=== PATIENT | male | born 1935 | race Caucasian/White ===

== ENCOUNTER 2018-08-09 19:56 | Emergency (ER) | payer OTHER, MEDICARE ==
[~2018-08-09] VITALS: Ht 175.3 cm; Wt 79.8 kg
[2018-08-09 21:19] LABS: BASOPHILS ABSOLUTE AUTO 0.02 K/mm3 (0.00-0.23); BASOPHILS PERCENT AUTO 0 % (0-2); EOSINOPHILS ABSOLUTE AUTO 0.06 K/mm3 (0.00-0.68); EOSINOPHILS PERCENT AUTO 1 % (0-6); Hematocrit 38.4 % (37.0-53.0); Hemoglobin 12.8 g/dL (13.5-17.5); IMMATURE GRAN ABSOLUTE AUTO 0.02 K/mm3 (0.00-0.10); IMMATURE GRAN PERCENT AUTO 0 % (0-1); LYMPHOCYTES ABSOLUTE AUTO 1.21 K/mm3 (0.84-5.20); LYMPHOCYTES PERCENT AUTO 15 % (21-46); MONOCYTES PERCENT AUTO 10 % (4-13); Mean Corpuscular HGB 33.6 pg (26.0-34.0); Mean Corpuscular HGB Conc 33.3 g/dL (31.5-36.5); Mean Corpuscular Volume 101 fL (80-100); Mean Platelet Volume 9.9 fL (9.1-12.4); NEUTROPHILS ABSOLUTE AUTO 5.99 K/mm3 (1.96-9.15); NEUTROPHILS PERCENT AUTO 74 % (41-73); Platelet Count 133 K/mm3 (150-400); RDW Standard Deviation 48.5 fL (35.1-46.3); Red Blood Cell Count 3.81 M/mm3 (4.30-5.90)
[2018-08-09 21:42] LABS: Alanine Aminotransfer (ALT/SGP 13 U/L (12-78); Albumin, Blood 3.3 g/dL (3.4-5.0); Albumin/Globulin Ratio 1.1 (0.8-1.8); Alk Phos 65 U/L (50-136); Anion Gap 10 mmol/L (6-16); Aspartate Aminotrans (AST/SGOT 15 U/L (12-37); Bilirubin, Total 0.6 mg/dL (0.1-1.0); Blood Urea Nitrogen 17 mg/dL (8-24); Bun/Creatinine Ratio 14.7 (12.0-20.0); CO2, Blood 25 mmol/L (21-32); Calcium, Blood 8.5 mg/dL (8.5-10.1); Chloride, Blood 109 mmol/L (98-108); Creatinine, Blood 1.16 mg/dL (0.60-1.20); Globulin, Blood 3.1 g/dL (2.2-4.0); Glomerular Filtration Rate >60 (60-); Glucose, Blood 117 mg/dL (70-99); Potassium, Blood 3.6 mmol/L (3.5-5.5); Sodium, Blood 144 mmol/L (136-145); Total Protein, Blood 6.4 g/dL (6.4-8.2); Troponin I <0.015 ng/mL (0.000-0.040)
[2018-08-09] MEDS ORDERED: AMLO5 PO (22:58)
[2018-08-09] MEDS ORDERED: DOCU100 PO (22:59)
[2018-08-09] MEDS ORDERED: Motion Sickness25 M1 PO (22:59)
[2018-08-09] MEDS ORDERED: Terazosin HCl10 MG PO (23:00)
[2018-08-09] MEDS ORDERED: BUPR100 PO (23:00)
[2018-08-09] MEDS ORDERED: Omeprazole20 M1 PO (23:01)
[2018-08-09] MEDS ORDERED: CHLO25B PO (23:01)
[2018-08-09] MEDS ORDERED: PEG3350510 GM (23:01)
[2018-08-09] MEDS ORDERED: Inderal40 MG PO (23:02)
[2018-08-09] MEDS ORDERED: SENN187 PO (23:02)
[2018-08-09] MEDS ORDERED: Lamisil At6 GM (23:02)
[2018-08-09] MEDS ORDERED: Norco 5-325 Ta1 EACH PO (23:45)
[2018-08-09] MEDS ORDERED: LEVO750 PO (23:45)
== END 2018-08-09 23:55 | disposition home or self-care (01) ==
LOC: ER 19:56
PROVIDERS: Emergency Medicine
DX: J18.9 Pneumonia, unspecified organism (principal); I12.9 Hypertensive chronic kidney disease with stage 1 through stage 4 chronic kidney disease, or unspecified chronic kidney disease; N18.9 Chronic kidney disease, unspecified; G47.30 Sleep apnea, unspecified; E78.5 Hyperlipidemia, unspecified; M19.90 Unspecified osteoarthritis, unspecified site; Z88.8 Allergy status to other drugs, medicaments and biological substances; Z79.899 Other long term (current) drug therapy; Z86.718 Personal history of other venous thrombosis and embolism; Z79.02 Long term (current) use of antithrombotics/antiplatelets; Z87.891 Personal history of nicotine dependence
CPT/HCPCS: 71260; 80053; 83880; 84484; 85025; 93005; 93010; 99285-25; Q9967

== ENCOUNTER 2019-01-19 19:45 | Inpatient (IN) | payer OTHER, MEDICARE ==
[~2019-01-19] VITALS: Ht 167.6 cm; Wt 79.2 kg
[~2019-01-19 19:45] MED LIST: AMLO5 PO; BUPR100ER PO; CHLO25B PO; DOCU100 PO; Inderal40 MG PO; LEVO750 PO; Lamisil At6 GM; Motion Sickness25 M1 PO; Norco 5-325 Ta1 EACH PO; Omeprazole20 M1 PO; PEG3350510 GM PO; SENN187 PO; Terazosin HCl10 MG PO
[2019-01-19] MEDS ORDERED: ELIQUIS5 MG PO (21:20)
[2019-01-19] MEDS ORDERED: Aspirin EC81 MG PO (21:21)
[2019-01-19] MEDS ORDERED: SIMV10 PO (21:28)
[2019-01-19 22:53] LABS: Hematocrit 37.5 % (37.0-53.0); Hemoglobin 12.3 g/dL (13.5-17.5); Mean Corpuscular HGB 32.5 pg (26.0-34.0); Mean Corpuscular HGB Conc 32.8 g/dL (31.5-36.5); Mean Corpuscular Volume 99 fL (80-100); Platelet Count 119 K/mm3 (150-400); RDW Coefficient Variation 13.2 % (11.7-14.2); Red Blood Cell Count 3.78 M/mm3 (4.30-5.90); White Blood Cell Count 9.18 K/mm3 (4.00-11.30)
[2019-01-19 23:07] LABS: International Normalized Ratio 1.04
--- NOTE | 2019-01-20 | NUR ---
ADMIT PT ARRIVED TO PCU 2 AT 2345 VIA ER BED. PT IS AWAKE, ALERT, AND ORIENTED. PT STOOD UP TO TRANSFER TO PCU BED WITH SBA. PT DENIES PAIN OR SOB AT THIS TIME. PT COMPLAINS OF SOME DISCOMFORT TO RIB AREA WITH DEEP INSPIRATION. VITAL SIGNS STABLE. PT ON 2L O2 NC. PT WITH ATTENDS IN PLACE. WILL CONTINUE TO MONITOR.
[2019-01-20] MEDS ORDERED: POTCHL20ER PO (00:08)
[2019-01-20] MEDS ORDERED: Vitamin B Comple1 EA PO (00:09)
[2019-01-20] MEDS ORDERED: Vitamin B-121000 MCG PO (00:10)
[2019-01-20] MEDS ORDERED: Calcium Magnes1 EACH PO (00:13)
[2019-01-20 04:07] LABS: Hematocrit 35.3 % (37.0-53.0); Hemoglobin 11.7 g/dL (13.5-17.5); Mean Corpuscular HGB 32.8 pg (26.0-34.0); Mean Corpuscular HGB Conc 33.1 g/dL (31.5-36.5); Mean Corpuscular Volume 99 fL (80-100); Mean Platelet Volume 10.3 fL (9.1-12.4); Platelet Count 122 K/mm3 (150-400); RDW Coefficient Variation 13.1 % (11.7-14.2); RDW Standard Deviation 47.6 fL (35.1-46.3); Red Blood Cell Count 3.57 M/mm3 (4.30-5.90); White Blood Cell Count 8.81 K/mm3 (4.00-11.30)
[2019-01-20 04:33] LABS: Anion Gap 6 mmol/L (6-16); Blood Urea Nitrogen 15 mg/dL (8-24); Bun/Creatinine Ratio 15.5 (12.0-20.0); CO2, Blood 27 mmol/L (21-32); Calcium, Blood 8.3 mg/dL (8.5-10.1); Chloride, Blood 104 mmol/L (98-108); Creatinine, Blood 0.97 mg/dL (0.60-1.20); Glomerular Filtration Rate >60 (60-); Glucose, Blood 105 mg/dL (70-99); Potassium, Blood 3.8 mmol/L (3.5-5.5); Sodium, Blood 137 mmol/L (136-145)
--- NOTE | 2019-01-20 05:39 | NUR ---
SHIFT SUMMARY NO ACUTE CHANGES THIS SHIFT. PT REMAINS ALERT AND ORIENTED. VITAL SIGNS HAVE REMAINED STABLE, PT ON 2L O2 NC. PT DENIES SOB OR PAIN AT REST. NS INFUSING AT 100 ML/HR. PT USED URINAL ONCE TO VOID, ATTENDS REMAIN IN PLACE. PT HAS REPOSITIONED SELF IN BED INDEPENDENTLY. PT TAKING PO FLUIDS WELL. WILL CONTINUE TO MONITOR AND REPORT OFF TO ONCOMING RN.
--- NOTE | 2019-01-20 16:19 | NUR ---
PT FOUND IN ROOM WANDERING AROUND WITHOUT O2 EARLIER THIS AFTERNOON, CONTINUES TO TAKE OFF. PT HAS BEEN ASKING INTERMITTENTLY WHERE HE IS AND WHY HE IS HERE. ASSESS PT ORIENTED TO PERSON, DATE, SURROUNDING AND EVENT. NOTIFIED DR SANTIAGO TO CHANGES, NEW ORDERS FOR ABG. RT NOTIFIED. WILL CONTINUE TO MONITOR.
[2019-01-20 16:33] LABS: PCO2 Arterial 37.1 mmHg (35-45); PO2 Arterial 61.6 mmHg (80-100); pH Blood Arterial 7.41 (7.35-7.45)
--- NOTE | 2019-01-20 16:46 | NUR ---
SHIFT SUMMARY PT A&Ox3; TO PERSON, DATE, EVENT AND SURROUNDING, PT STATES HE DOES NOT THINK WE ARE IN [place]. PT HAS HAD INTERMITTIENT CONFUSE THIS AFTERNOON, NOTIFIED DR SANTIAGO. PT REPOTS RIB/CHEST AND LLE PAIN, MEDICATED PER EMAR. PT ON 2L O2 VIA NC THIS AM, TITRATED TO RA. BREATHING EVEN AND UNLABORED. SOB WITH EXERTION. PT DENIES NAUSEA DURING SHIFT. PT SBA TO BATHROOM. PT SETS OFF BED AND CHAIR ALARM, NOT USING CALL LIGHT. VENOUS DUPLEX COMPLTED DURING SHIFT. VSS. NO OTHER ACUTE CHANGES NOTED. WILL CONTINUE TO MONITOR.
--- NOTE | 2019-01-20 18:04 | NUR ---
NOTIFIED DR SANTIAGO OF ABG RESULTS. NO NEW ORDERS. WILL CONTINUE TO MONITOR.
--- NOTE | 2019-01-20 19:30 | NUR ---
C[facility] of Care: Patient alert and oriented x4, sitting upright in bed. c/o pain to mid-chest upon deep inspiration 01/09. Patient states chest pain has been present since before admission and has slightly improved, denies pain to any other locations. Denies dyspnea/SOB, O2-96-98% on RA, also tolerates ambulation to bathroom without difficulty. VS wnl, heart rhythm per telemetry shows A-flutter, rate 60's. Bed-alarm in place as patient is not using call light for assistance, and getting out of bed to go to bathroom. Peripheral IV x1 to rt AC patent and intact. Will continue to monitor for pain, safety, comfort.
--- NOTE | 2019-01-21 00:24 | NUR ---
Confusion/Restlessness: Patient becoming increasingly confused/restless since start of shift. Increasing frequency to almost constantly climbing out of bed without assistance. Patient attempting to leave his room, wanting to check other rooms for belongings, , or attempting to find his room. Increasing confusion, not remembering where he is or time/date. Remains calm with staff but becoming more difficulty to re-direct. Contacted Dr. Marroquin and received orders for mackenzie vest restraint and for prn Haldol 2-3mg IV q6 prn agitation. Patient now in mackenzie vest, tolerating without difficulty. Will give prn Haldol.
[2019-01-21 03:43] LABS: BASOPHILS ABSOLUTE AUTO 0.01 K/mm3 (0.00-0.23); BASOPHILS PERCENT AUTO 0 % (0-2); EOSINOPHILS ABSOLUTE AUTO 0.12 K/mm3 (0.00-0.68); EOSINOPHILS PERCENT AUTO 1 % (0-6); Hematocrit 34.9 % (37.0-53.0); Hemoglobin 11.8 g/dL (13.5-17.5); IMMATURE GRAN ABSOLUTE AUTO 0.04 K/mm3 (0.00-0.10); IMMATURE GRAN PERCENT AUTO 1 % (0-1); LYMPHOCYTES ABSOLUTE AUTO 1.26 K/mm3 (0.84-5.20); LYMPHOCYTES PERCENT AUTO 15 % (21-46); MONOCYTES ABSOLUTE AUTO 0.89 K/mm3 (0.16-1.47); MONOCYTES PERCENT AUTO 11 % (4-13); Mean Corpuscular HGB 32.8 pg (26.0-34.0); Mean Corpuscular HGB Conc 33.8 g/dL (31.5-36.5); Mean Corpuscular Volume 97 fL (80-100); NEUTROPHILS ABSOLUTE AUTO 6.19 K/mm3 (1.96-9.15); NEUTROPHILS PERCENT AUTO 73 % (41-73); Platelet Count 147 K/mm3 (150-400); RDW Coefficient Variation 13.1 % (11.7-14.2); RDW Standard Deviation 46.6 fL (35.1-46.3); White Blood Cell Count 8.51 K/mm3 (4.00-11.30)
[2019-01-21 04:05] LABS: Alanine Aminotransfer (ALT/SGP 10 U/L (12-78); Albumin, Blood 2.8 g/dL (3.4-5.0); Albumin/Globulin Ratio 0.8 (0.8-1.8); Alk Phos 78 U/L (50-136); Anion Gap 7 mmol/L (6-16); Aspartate Aminotrans (AST/SGOT 14 U/L (12-37); Bilirubin, Total 0.8 mg/dL (0.1-1.0); Blood Urea Nitrogen 15 mg/dL (8-24); Bun/Creatinine Ratio 14.6 (12.0-20.0); CO2, Blood 25 mmol/L (21-32); Calcium, Blood 8.5 mg/dL (8.5-10.1); Chloride, Blood 107 mmol/L (98-108); Creatinine, Blood 1.03 mg/dL (0.60-1.20); Globulin, Blood 3.3 g/dL (2.2-4.0); Glomerular Filtration Rate >60 (60-); Glucose, Blood 110 mg/dL (70-99); Potassium, Blood 3.7 mmol/L (3.5-5.5); Sodium, Blood 139 mmol/L (136-145); Total Protein, Blood 6.1 g/dL (6.4-8.2)
--- NOTE | 2019-01-21 05:57 | NUR ---
Shift Summary: Patient's confusion/restlessness improving since giving prn Haldol at approx 0030hr. Patient able to sleep for approx 4hr in total. Still attempts to get out of bed and mackenzie vest, but made less attempts and became easier to re-direct. Dukes vest and bed-alarm remain in place at this time. Voiding using urinal without difficulty. Continues to deny pain, discomfort, SOB, or dyspnea. VSS, O2-92-96% on RA. Call light in reach, but patient has not been using for assistance. Will continue to monitor for until report to day shift RN.
--- NOTE | 2019-01-21 08:40 | NUR ---
ASSUMED CARE OF PATIENT AT 0700. PT RESTING IN BED, APPEARS TO BE SLEEPING. PT APPEARS DISORIENTED WHEN HE WAKES UP, ALERT AND ORIENTED TO PERSON, DATE/TIME AND EVENT. PT STATES HE IS AT STILL AT THE HOSPITAL BUT UNSURE OF WHICH ONE OR WHAT CITY IT WAS IN. REPORTS RIB PAIN WITH DEEP INHALATION, WILL CONTINUE TO MONITOR. PT DENIES SOB WITH EXERTION, >94% ON RA, LS DIM T/O, BREAHITNG EVEN AND UNLABORED. VSS. WILL CONTINUE TO MONITOR.
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
[2019-01-21 09:32] LABS: Thyroid Stimulating Hormone 5.1 uIU/mL (0.360-4.800)
--- NOTE | 2019-01-21 17:00 | NUR ---
SHIFT SUMMARY PT A&Ox3, WITH INTERMITTENT CONFUSION AND FORGETFULNESS. PT SBA IN ROOM. PT REPORTS PAIN THIS AM, STATES THIS AFTERNOON THE IS HAS RESOLVE. SPO2 >94% ON RA, DENIES SOB, BREATHING EVEN AND UNLABORED, LS DIM T/O. PT DENIES NAUSEA/EMESIS. HEAD CT COMPLETED DURING SHIFT. VSS. NO OTHER ACUTE CHANGES NOTED DURING SHIFT. WILL CONTINUE TO MONITOR UNTIL REPORT GIVEN TO ONCOMING RN.
--- NOTE | 2019-01-21 19:30 | NUR ---
ASSUMED CARE PT RESTING IN ROOM IN CHAIR AT BEDSIDE COMFORTABLY AT THIS TIME. REPORT FROM DAY SHIFT THAT PT HAS BEEN CONFUSED ON AND OFF T/O DAY. PT IS EASILY DIRECTABLE, BUT CANNOT REMEMBER TO USE CALL LIGHT BEFORE GETTING UP. PT HAS CHAIR ALARM ON WELL, AND WILL UTILIZE BED ALARM TONIGHT. RESP EVEN UNLBAORED ON RA W/ SATS >92%. DENIES TACO AT THIS TIME. DENIES OTHER NEEDS. CALL LIGHT WITHIN REACH, CHAIR ALARM ON FOR SAFETY.
--- NOTE | 2019-01-22 05:35 | NUR ---
SHIFT SUMMARY PT SLEEPING IN ROOM COMFROTABLY AT THIS TIME. NO ACUTE CHANGES IN STATUS T/O NIGHT. PT SLEPT WELL IN SHORT PERIODS. PT DID GET OUT OF BED W/O USING CALL LIGHT SEVERAL TIMES, AND SET BED ALARM OFF. PT WAS EASILY DIRECTABLE BACK TO BED, AND REORIENTED TO EVENT AND TIME. RESP EVEN UNLABORED ON RA W/ SATS >92%. DENIES OTHER NEEDS. DENIES CP, OR SOB. CALL LIGHT IN REACH, BED ALARM ON FOR SAFETY.
--- NOTE | 2019-01-22 08:00 | NUR ---
PT AWAKE, ALERT, COOPERATIVE. ANSWERS QUESTIONS APPROPRIATELY. ABLE TO SIT UP, WALKED TO BATHROOM WITH STANDBY ASSIST, TOLERATED WELL. DENIES COMPLAINTS.NO DISTRESS
--- NOTE | 2019-01-22 12:23 | NUR ---
DENIES ANY COMPLAINTS. ALERT, ORIENTED. COOPERATIVE. VISITING WITH .
[2019-01-22] MEDS ORDERED: EUTHYROX50 MCG PO (14:39)
[2019-01-22] MEDS ORDERED: CYAN500 PO (14:40)
--- NOTE | 2019-01-22 15:16 | NUR ---
DISCHARGE- HERE-ORDERS FOR D/C HOME. PT WANTING TO GO HOME, DRESSED BY SELF, UP IN ROOM BY SELF. ORIENTED, ASKING APPROPRIATE QUESTIONS. HERE-REVIEWED DISCHARGE INSTRUCTIONS, NEED TO [employer]OOMMA[employer] SUPERVISOR PRESCRIPTIONS AT [facility]-STATES UNDERSTANDING. ASKED IF HE WANTED APPT MADE-STATED HE WOULD MAKE AT [facility] TODAY. DISCHARGE WITH TWO PRESCRIPTIONS FAXED TO [facility]. EXPLAINED BLOOD PRESSURE MEDICATION PROPONOLOL CHANGED TO DAILY-PT VERBALIZED UNDERSTANDING OF MEDICATIONS, BLOOD THINNER. STATES WILL CALL DAUGHTER AT HOME-DID NOT WANT NURSE TO CALL. PIV D/C
== END 2019-01-22 15:45 | disposition home or self-care (01) | DRG 175 ==
LOC: ER 19:45 → PCU 22:41
PROVIDERS: Internal Medicine; Nurse Practitioner Acute Care; ADMIT Internal Medicine
DX: I26.99 Other pulmonary embolism without acute cor pulmonale (principal); J96.01 Acute respiratory failure with hypoxia; E03.9 Hypothyroidism, unspecified; F03.90 Unspecified dementia, unspecified severity, without behavioral disturbance, psychotic disturbance, mood disturbance, and anxiety; I10 Essential (primary) hypertension; F32.9 Major depressive disorder, single episode, unspecified; K21.9 Gastro-esophageal reflux disease without esophagitis; M19.90 Unspecified osteoarthritis, unspecified site; G47.33 Obstructive sleep apnea (adult) (pediatric); Z86.718 Personal history of other venous thrombosis and embolism; Z85.46 Personal history of malignant neoplasm of prostate; Z88.8 Allergy status to other drugs, medicaments and biological substances; Z79.899 Other long term (current) drug therapy; Z87.891 Personal history of nicotine dependence; Z79.01 Long term (current) use of anticoagulants; Z79.82 Long term (current) use of aspirin
CPT/HCPCS: 36415; 36600; 70450; 80048; 80053; 82607; 82746; 82803; 84443; 85025; 85027; 85610; 85651; 85730; 86592; 93005; 93010; 93970; 99285-25; A9270; J1630; J7030

== ENCOUNTER 2020-11-19 18:47 | Emergency (ER) | payer OTHER, MEDICARE ==
[~2020-11-19] VITALS: Ht 170.2 cm; Wt 64.9 kg
[~2020-11-19 18:47] MED LIST changes: +Aspirin EC81 MG PO; +CYAN500 PO; +Calcium Magnes1 EACH PO; +ELIQUIS5 MG PO; +EUTHYROX50 MCG PO; +POTCHL20ER PO; +SIMV10 PO; +Vitamin B Comple1 EA PO; +Vitamin B-121000 MCG PO
[2020-11-19 19:17] LABS: BASOPHILS ABSOLUTE AUTO 0.03 K/mm3 (0.00-0.23); BASOPHILS PERCENT AUTO 1 % (0-2); EOSINOPHILS ABSOLUTE AUTO 0.13 K/mm3 (0.00-0.68); EOSINOPHILS PERCENT AUTO 2 % (0-6); Hematocrit 42.3 % (37.0-53.0); Hemoglobin 13.9 g/dL (13.5-17.5); IMMATURE GRAN ABSOLUTE AUTO 0.02 K/mm3 (0.00-0.10); IMMATURE GRAN PERCENT AUTO 0 % (0-1); LYMPHOCYTES PERCENT AUTO 32 % (21-46); MONOCYTES ABSOLUTE AUTO 0.44 K/mm3 (0.16-1.47); MONOCYTES PERCENT AUTO 7 % (4-13); Mean Corpuscular HGB 33.5 pg (26.0-34.0); Mean Corpuscular HGB Conc 32.9 g/dL (31.5-36.5); Mean Corpuscular Volume 102 fL (80-100); Mean Platelet Volume 9.6 fL (9.1-12.4); NEUTROPHILS ABSOLUTE AUTO 3.41 K/mm3 (1.96-9.15); NEUTROPHILS PERCENT AUTO 58 % (41-73); Platelet Count 189 K/mm3 (150-400); RDW Coefficient Variation 13.6 % (11.7-14.2); RDW Standard Deviation 52.3 fL (35.1-46.3); Red Blood Cell Count 4.15 M/mm3 (4.30-5.90); White Blood Cell Count 5.93 K/mm3 (4.00-11.30)
[2020-11-19 19:41] LABS: Magnesium, Blood 2.2 mg/dL (1.6-2.4)
[2020-11-19 19:45] LABS: Alanine Aminotransfer (ALT/SGP 14 U/L (12-78); Albumin, Blood 3.4 g/dL (3.4-5.0); Alk Phos 81 U/L (50-136); Anion Gap 7 mmol/L (6-16); Aspartate Aminotrans (AST/SGOT 13 U/L (12-37); Bilirubin, Total 0.4 mg/dL (0.1-1.0); Blood Urea Nitrogen 12 mg/dL (8-24); CO2, Blood 25 mmol/L (21-32); Calcium, Blood 8.4 mg/dL (8.5-10.1); Chloride, Blood 111 mmol/L (98-108); Creatinine, Blood 1.09 mg/dL (0.60-1.20); Globulin, Blood 3.3 g/dL (2.2-4.0); Glomerular Filtration Rate >60 (60-); Glucose, Blood 86 mg/dL (70-99); Potassium, Blood 4.1 mmol/L (3.5-5.5); Sodium, Blood 143 mmol/L (136-145); Total Protein, Blood 6.7 g/dL (6.4-8.2)
== END 2020-11-19 21:37 | disposition home or self-care (01) ==
LOC: ER 18:47
PROVIDERS: Emergency Medicine
DX: R55 Syncope and collapse (principal); K21.9 Gastro-esophageal reflux disease without esophagitis; Z88.8 Allergy status to other drugs, medicaments and biological substances; Z79.01 Long term (current) use of anticoagulants; Z79.899 Other long term (current) drug therapy; Z87.891 Personal history of nicotine dependence
CPT/HCPCS: 70450; 80053; 83735; 85025; 93005; 93010; 99285-25